=== PATIENT | male | born 1985 | race Caucasian/White ===

== ENCOUNTER 2022-08-22 15:16 | Emergency (ER) | payer MEDICAID ==
[~2022-08-22] VITALS: Ht 188 cm; Wt 78.0 kg
[2022-08-22] MEDS ORDERED: morphine 10mg/ml inj. IV ONE (17:00)
[2022-08-22] MEDS ORDERED: ketorolac trometh. 30mg/ml inj. IV ONE (17:00)
[2022-08-22] MEDS ORDERED: ketorolac tromethamine 15mg/ml inj. IV ONE (17:10)
[2022-08-22] MEDS ORDERED: orphenadrine citrate 60mg/2ml inj. IM ONE (19:30)
[2022-08-22] MEDS ORDERED: HYDROcodone/acetaminophen 10/325mg tab PO ONE (19:30)
[2022-08-22] MEDS ORDERED: ORPH100T4 PO (19:37)
[2022-08-22] MEDS ORDERED: HYDR-3972 PO (19:37)
[2022-08-22 19:53] VITALS: BP 136/90
== END 2022-08-22 19:59 | disposition home or self-care (01) ==
LOC: ER 15:17
DX: M54.59 Other low back pain (principal); F17.200 Nicotine dependence, unspecified, uncomplicated; Z79.899 Other long term (current) drug therapy
CPT/HCPCS: 71100; 72131; 96372; 96374; 96375; 99285; J1885; J2274; J2360

== ENCOUNTER 2022-09-01 20:55 | Emergency (ER) | payer MEDICAID ==
[~2022-09-01] VITALS: Ht 185.4 cm; Wt 81.8 kg
[~2022-09-01 20:55] MED LIST: HYDR-3972 PO; ORPH100T4 PO
[2022-09-01 21:01] VITALS: BP 120/80
[2022-09-01] MEDS ORDERED: ketorolac trometh inj. 60 MG/2 ML VIAL IM ONE (21:40)
[2022-09-01] MEDS ORDERED: morphine 4 MG/ML inj SYRINge IM ONE (22:45)
[2022-09-01] MEDS ORDERED: ondansetron 4mg rapidly disintigrating tab PO ONE (22:45)
[2022-09-02] MEDS ORDERED: triamcinolone acetonide 40mg/ml inj IM ONE (00:50)
[2022-09-02] MEDS ORDERED: HYDROmorphone 1 mg/ml syringe IM ONE (00:50)
[2022-09-02] MEDS ORDERED: orphenadrine citrate 60mg/2ml inj. IM ONE (00:50)
[2022-09-02] MEDS ORDERED: CYCL-1 PO (00:54)
[2022-09-02] MEDS ORDERED: NAPR-56 PO (00:54)
[2022-09-02 01:21] LABS: URINE AMPHETAMINE SCREEN NEGATIVE (Neg); URINE BARBITUATE SCREEN NEGATIVE (Neg); URINE BENZODIAZEPINES SCREEN NEGATIVE (Neg); URINE CANNABINOID SCREEN NEGATIVE (Neg); URINE COCAINE SCREEN NEGATIVE (Neg); URINE METHADONE SCREEN NEGATIVE (Neg); URINE OPIATE SCREEN NEGATIVE (Neg); URINE PHENCYCLIDINE SCREEN NEGATIVE (Neg)
[2022-09-02 01:23] LABS: CLARITY,URINE CLEAR (Clear); COLOR,URINE YELLOW (Yellow); GLUCOSE, URINE NEGATIVE (Neg); KETONES,URINE NEGATIVE (Neg); LEUKOCYTE ESTERASE ,URINE NEGATIVE (Neg); NITRITES, URINE NEGATIVE (Neg); OCCULT BLOOD,URINE NEGATIVE (Neg); PROTEIN,URINE NEGATIVE (Neg); UROBILINOGEN,URINE 0.2 E.U/dL (0.2-1.0)
[2022-09-02 01:33] LABS: UA COLLECTION TYPE URINAL
== END 2022-09-02 01:54 | disposition home or self-care (01) ==
LOC: ER 20:56
DX: M54.59 Other low back pain (principal); M62.830 Muscle spasm of back; Z79.899 Other long term (current) drug therapy
CPT/HCPCS: 80305; 81003; 96372; 99284; J1170; J1885; J2270; J2360; J3301

== ENCOUNTER 2024-04-16 17:55 | Emergency (ER) | payer MEDICAID ==
[~2024-04-16] VITALS: Ht 185.4 cm; Wt 86.4 kg
[~2024-04-16 17:55] MED LIST changes: -HYDR-3972 PO; +IBUP-1985 PO; +NICO-687 TD; +OMEP20CA15 PO; -ORPH100T4 PO; +PANT40TA54 PO
[2024-04-16 18:06] VITALS: TEMP 98.1
[2024-04-16 18:31] LABS: BASOPHILS # (AUTO) 0.1 X10'3 (0-0.2); BASOPHILS % (AUTO) 1.1 % (0-1); EOSINOPHILS # (AUTO) 0.4 X10'3 (0-0.9); EOSINOPHILS % (AUTO) 4.8 % (0-6); HEMATOCRIT 46.6 % (42.0-52.0); HEMOGLOBIN 16.2 g/dl (14.0-17.9); LYMPHOCYTES # (AUTO) 2.9 X10'3 (1.1-4.8); LYMPHOCYTES % (AUTO) 38.6 % (21-51); MEAN CORPUSCULAR HEMOGLOBIN 32.7 PG (27.0-31.0); MEAN CORPUSCULAR HGB CONC 34.8 g/dL (33.0-36.5); MEAN CORPUSCULAR VOLUME 94.1 FL (78-98); MEAN PLATELET VOLUME 7.9 FL (7.4-10.4); MONOCYTES # (AUTO) 0.7 X10'3 (0-0.9); MONOCYTES % (AUTO) 8.8 % (2-12); NEUTROPHILS # (AUTO) 3.6 X10'3 (1.8-7.7); NEUTROPHILS % (AUTO) 46.7 % (42-75); PLATELET COUNT 293 X10'3 (140-440); RED BLOOD COUNT 4.96 X10'6 (4.70-6.10); RED CELL DISTRIBUTION WIDTH 13.4 % (11.5-14.5); WHITE BLOOD COUNT 7.6 X10'3 (4.5-11.0)
[2024-04-16 18:56] LABS: ALANINE AMINOTRANSFERASE 32 U/L (12-78); ALBUMIN 4.3 G/DL (3.4-5.0); ALKALINE PHOSPHATASE 96 IU/L (46-116); ANION GAP 13 (8-16); ASPARTATE AMINO TRANSFERASE 31 U/L (10-37); BILIRUBIN,TOTAL 0.6 MG/DL (0.1-1.0); BLOOD UREA NITROGEN 7 MG/DL (7-18); BUN/CREATININE RATIO 7.5 (10.0-20.0); CALCIUM 9.2 MG/DL (8.5-10.1); CHLORIDE 104 MMOL/L (99-107); CREATININE 0.93 MG/DL (0.60-1.10); GLUCOSE 103 MG/DL (70-104); LIPASE 73 U/L (16-77); POTASSIUM 3.7 MMOL/L (3.5-5.1); SODIUM 142 MMOL/L (135-145); TOTAL CARBON DIOXIDE 25.4 MMOL/L (24-32); TOTAL PROTEIN 8.6 G/DL (6.4-8.2); eCRCL 119 ML/MIN; eGFR 90 ML/MIN
[2024-04-16 19:31] LABS: BILIRUBIN,URINE NEGATIVE (Neg); CLARITY,URINE CLEAR (Clear); COLOR,URINE YELLOW (Yellow); GLUCOSE, URINE NEGATIVE (Neg); KETONES,URINE NEGATIVE (Neg); LEUKOCYTE ESTERASE ,URINE NEGATIVE (Neg); NITRITES, URINE NEGATIVE (Neg); OCCULT BLOOD,URINE NEGATIVE (Neg); PROTEIN,URINE NEGATIVE (Neg); UROBILINOGEN,URINE 0.2 E.U/dL (0.2-1.0)
[2024-04-16 19:34] LABS: UA COLLECTION TYPE CLN CATCH MIDSTREAM
[2024-04-16] MEDS: LIDOcaine 2% Viscous 15ml cup MM PRN (19:43)
[2024-04-16] MEDS: mag hydrox/Alum hydrox/simeth 30ml oral suspension PO ONE (19:43)
[2024-04-16] MEDS: pantoprazole 40 MG vial IV ONE (19:43)
[2024-04-16] MEDS ORDERED: SUCR1TAB PO (20:03)
[2024-04-16 20:11] VITALS: PULSE 84; RESP 16; O2SAT 95
== END 2024-04-16 20:15 | disposition home or self-care (01) ==
LOC: ER 17:56
DX: K29.70 Gastritis, unspecified, without bleeding (principal); K29.80 Duodenitis without bleeding; F10.10 Alcohol abuse, uncomplicated
CPT/HCPCS: 36415; 80053; 81003; 83690; 85025; 96374; 99283; J2470; J7030

== ENCOUNTER 2024-04-27 14:28 | Emergency (ER) | payer MEDICAID ==
[~2024-04-27] VITALS: Ht 185.4 cm; Wt 86.0 kg
[~2024-04-27 14:28] MED LIST changes: +SUCR1TAB PO
[2024-04-27 14:42] VITALS: TEMP 97.6
[2024-04-27] MEDS ORDERED: normal saline 1000ML IV soln IVB ONE (14:50)
[2024-04-27] MEDS ORDERED: ondansetron/PF 4mg/2ml inj IV ONE (14:55)
[2024-04-27] MEDS ORDERED: morphine 4 MG/ML inj SYRINge IV ONE (14:55)
[2024-04-27 15:14] LABS: BILIRUBIN,URINE NEGATIVE (Neg); CLARITY,URINE CLEAR (Clear); COLOR,URINE YELLOW (Yellow); GLUCOSE, URINE NEGATIVE (Neg); KETONES,URINE NEGATIVE (Neg); LEUKOCYTE ESTERASE ,URINE NEGATIVE (Neg); NITRITES, URINE NEGATIVE (Neg); OCCULT BLOOD,URINE NEGATIVE (Neg); PH,URINE 5.5 (4.8-8.0); PROTEIN,URINE NEGATIVE (Neg); UROBILINOGEN,URINE 0.2 E.U/dL (0.2-1.0)
[2024-04-27 15:17] LABS: UA COLLECTION TYPE CLN CATCH MIDSTREAM
[2024-04-27 15:40] LABS: BASOPHILS # (AUTO) 0.1 X10'3 (0-0.2); BASOPHILS % (AUTO) 0.4 % (0-1); EOSINOPHILS # (AUTO) 0.3 X10'3 (0-0.9); EOSINOPHILS % (AUTO) 2.4 % (0-6); HEMATOCRIT 45.2 % (42.0-52.0); HEMOGLOBIN 15.5 g/dl (14.0-17.9); LYMPHOCYTES # (AUTO) 2.7 X10'3 (1.1-4.8); LYMPHOCYTES % (AUTO) 20.3 % (21-51); MEAN CORPUSCULAR HEMOGLOBIN 32.5 PG (27.0-31.0); MEAN CORPUSCULAR HGB CONC 34.3 g/dL (33.0-36.5); MEAN CORPUSCULAR VOLUME 94.8 FL (78-98); MEAN PLATELET VOLUME 7.9 FL (7.4-10.4); MONOCYTES # (AUTO) 0.9 X10'3 (0-0.9); MONOCYTES % (AUTO) 6.6 % (2-12); NEUTROPHILS # (AUTO) 9.2 X10'3 (1.8-7.7); NEUTROPHILS % (AUTO) 70.3 % (42-75); PLATELET COUNT 279 X10'3 (140-440); RED BLOOD COUNT 4.77 X10'6 (4.70-6.10); RED CELL DISTRIBUTION WIDTH 13.5 % (11.5-14.5); WHITE BLOOD COUNT 13.1 X10'3 (4.5-11.0)
[2024-04-27 15:56] LABS: ALANINE AMINOTRANSFERASE 25 U/L (12-78); ALBUMIN 4.1 G/DL (3.4-5.0); ALBUMIN/GLOBULIN RATIO 1.1 (1.1-1.5); ALKALINE PHOSPHATASE 72 IU/L (46-116); ANION GAP 12 (8-16); ASPARTATE AMINO TRANSFERASE 18 U/L (10-37); BILIRUBIN,TOTAL 0.7 MG/DL (0.1-1.0); BLOOD UREA NITROGEN 7 MG/DL (7-18); BUN/CREATININE RATIO 9.6 (10.0-20.0); CALCIUM 9.3 MG/DL (8.5-10.1); CHLORIDE 105 MMOL/L (99-107); CREATININE 0.73 MG/DL (0.60-1.10); GLUCOSE 98 MG/DL (70-104); LIPASE 65 U/L (16-77); POTASSIUM 3.9 MMOL/L (3.5-5.1); SODIUM 142 MMOL/L (135-145); TOTAL CARBON DIOXIDE 25.2 MMOL/L (24-32); eCRCL 152 ML/MIN; eGFR > 90 ML/MIN
[2024-04-27 16:17] LABS: C-REACTIVE PROTEIN < 0.05 MG/DL (0.0-0.5)
[2024-04-27] MEDS ORDERED: OMEP40CA21 PO (16:36)
[2024-04-27] MEDS: famotidine 20mg tablet PO ONE (17:22)
[2024-04-27] MEDS: mag hydrox/Alum hydrox/simeth 30ml oral suspension PO ONE (17:22)
[2024-04-27] MEDS: LIDOcaine 2% Viscous 15ml cup MM PRN (17:22)
[2024-04-27] MEDS: LORazepam 1 MG tablet PO ONE (17:22)
[2024-04-27 17:24] VITALS: BP 125/91; PULSE 84; RESP 16; O2SAT 97
[2024-04-27] MEDS ORDERED: SUCR1TAB34 PO (17:28)
== END 2024-04-27 18:08 | disposition home or self-care (01) ==
LOC: ER 14:28
DX: R10.9 Unspecified abdominal pain (principal); F10.10 Alcohol abuse, uncomplicated; R10.84 Generalized abdominal pain
CPT/HCPCS: 36415; 74176; 80053; 81003; 83605; 83690; 84145; 85025; 86140; 87040; 99284

== ENCOUNTER 2024-06-18 09:57 | Emergency (ER) | payer MEDICAID ==
[~2024-06-18] VITALS: Ht 185.4 cm; Wt 81.7 kg
[~2024-06-18 09:57] MED LIST changes: +SUCR1TAB34 PO
[2024-06-18 11:02] LABS: BASOPHILS # (AUTO) 0.1 X10'3 (0-0.2); BASOPHILS % (AUTO) 1.1 % (0-1); EOSINOPHILS # (AUTO) 0.1 X10'3 (0-0.9); EOSINOPHILS % (AUTO) 1.7 % (0-6); HEMATOCRIT 47.7 % (42.0-52.0); HEMOGLOBIN 16.3 g/dl (14.0-17.9); LYMPHOCYTES # (AUTO) 0.9 X10'3 (1.1-4.8); LYMPHOCYTES % (AUTO) 18.7 % (21-51); MEAN CORPUSCULAR HEMOGLOBIN 32.4 PG (27.0-31.0); MEAN CORPUSCULAR HGB CONC 34.2 g/dL (33.0-36.5); MEAN CORPUSCULAR VOLUME 94.7 FL (78-98); MONOCYTES # (AUTO) 0.1 X10'3 (0-0.9); MONOCYTES % (AUTO) 2.4 % (2-12); NEUTROPHILS # (AUTO) 3.5 X10'3 (1.8-7.7); NEUTROPHILS % (AUTO) 76.1 % (42-75); PLATELET COUNT 218 X10'3 (140-440); RED BLOOD COUNT 5.03 X10'6 (4.70-6.10); RED CELL DISTRIBUTION WIDTH 13.4 % (11.5-14.5); WHITE BLOOD COUNT 4.6 X10'3 (4.5-11.0)
[2024-06-18 11:20] LABS: APTT 29 SECONDS (22-32); INR 0.9 INR; PROTHROMBIN TIME 9.9 SECONDS (9.0-12.0)
[2024-06-18 11:22] LABS: ALANINE AMINOTRANSFERASE 31 U/L (12-78); ALBUMIN 4.1 G/DL (3.4-5.0); ALKALINE PHOSPHATASE 78 IU/L (46-116); ANION GAP 10 (8-16); ASPARTATE AMINO TRANSFERASE 32 U/L (10-37); BILIRUBIN,TOTAL 0.4 MG/DL (0.1-1.0); BLOOD UREA NITROGEN 6 MG/DL (7-18); BUN/CREATININE RATIO 8.5 (10.0-20.0); CHLORIDE 108 MMOL/L (99-107); CREATININE 0.71 MG/DL (0.60-1.10); GLUCOSE 121 MG/DL (70-104); POTASSIUM 4.2 MMOL/L (3.5-5.1); SODIUM 145 MMOL/L (135-145); TOTAL CARBON DIOXIDE 27.5 MMOL/L (24-32); TOTAL PROTEIN 8.2 G/DL (6.4-8.2); eCRCL 156 ML/MIN; eGFR > 90 ML/MIN
[2024-06-18 11:32] LABS: MAGNESIUM 2.1 MG/DL (1.5-2.4)
[2024-06-18 11:33] LABS: ETHANOL 327 MG/DL (<10)
[2024-06-18] MEDS: normal saline 1000ML IV soln IVB ONE (11:49)
[2024-06-18 12:32] LABS: BILIRUBIN,URINE NEGATIVE (Neg); CLARITY,URINE CLEAR (Clear); COLOR,URINE STRAW (Yellow); GLUCOSE, URINE NEGATIVE (Neg); KETONES,URINE NEGATIVE (Neg); LEUKOCYTE ESTERASE ,URINE NEGATIVE (Neg); NITRITES, URINE NEGATIVE (Neg); OCCULT BLOOD,URINE NEGATIVE (Neg); PH,URINE 6.5 (4.8-8.0); PROTEIN,URINE NEGATIVE (Neg); UROBILINOGEN,URINE 0.2 E.U/dL (0.2-1.0)
[2024-06-18 12:41] LABS: URINE AMPHETAMINE SCREEN NEGATIVE (Neg); URINE BARBITUATE SCREEN NEGATIVE (Neg); URINE BENZODIAZEPINES SCREEN NEGATIVE (Neg); URINE CANNABINOID SCREEN NEGATIVE (Neg); URINE COCAINE SCREEN NEGATIVE (Neg); URINE METHADONE SCREEN NEGATIVE (Neg); URINE OPIATE SCREEN NEGATIVE (Neg); URINE PHENCYCLIDINE SCREEN NEGATIVE (Neg)
[2024-06-18 12:48] LABS: UA COLLECTION TYPE URINAL
[2024-06-18 13:10] VITALS: BP 143/97; PULSE 81; RESP 16; TEMP 98.7; O2SAT 97
== END 2024-06-18 13:27 | disposition home or self-care (01) ==
LOC: ER 09:57
DX: R40.4 Transient alteration of awareness (principal); F10.129 Alcohol abuse with intoxication, unspecified; Y90.9 Presence of alcohol in blood, level not specified
CPT/HCPCS: 36415; 70450; 80053; 80305; 80320; 81003; 83735; 84484; 85025; 85610; 85730; 93005; 96360; 99284; J7030

== ENCOUNTER 2024-12-15 10:03 | Emergency (ER) | payer MEDICAID ==
[~2024-12-15] VITALS: Ht 172.7 cm; Wt 81.8 kg
[~2024-12-15 10:03] MED LIST changes: -IBUP-1985 PO; +IBUP600T52 PO
[2024-12-15 10:10] VITALS: TEMP 98.1
[2024-12-15 10:58] LABS: MEAN PLATELET VOLUME 7.8 FL (7.4-10.4); RED CELL DISTRIBUTION WIDTH 14.1 % (11.5-14.5)
[2024-12-15 11:16] LABS: LEUKOCYTE ESTERASE ,URINE NEGATIVE (Neg); NITRITES, URINE NEGATIVE (Neg); OCCULT BLOOD,URINE NEGATIVE (Neg); UA COLLECTION TYPE URINAL
[2024-12-15 11:56] LABS: CREATININE 0.72 MG/DL (0.60-1.10); TOTAL CARBON DIOXIDE 23.6 MMOL/L (24-32); eCRCL 132 ML/MIN; eGFR > 90 ML/MIN
[2024-12-15] MEDS ORDERED: morphine 4 MG/ML inj SYRINge IV PRN (12:50)
--- NOTE | 2024-12-15 13:05 | RADIOLOGY REPORT ---
CHEST RADIOGRAPH Indication: abdominal pain Technique: Single frontal view of the chest was obtained COMPARISON: None FINDINGS: Lines and Tubes: None Lungs: Clear Pleura: No effusion. No pneumothorax. Cardiomediastinal contours: Unremarkable Bones: Unremarkable IMPRESSION: No acute disease.
[2024-12-15] MEDS ORDERED: iohexol 300mg/ml 100ml inj. ONE (13:08)
[2024-12-15] MEDS: morphine 4 MG/ML inj SYRINge IV ONE (13:14)
[2024-12-15] MEDS: normal saline 1000ML IV soln IVB ONE ×2 (13:14→13:19)
[2024-12-15] MEDS: ondansetron/PF 4mg/2ml inj IV ONE ×2 (13:14→13:19)
[2024-12-15 13:19] VITALS: O2SAT 97
--- NOTE | 2024-12-15 14:37 | RADIOLOGY REPORT ---
COMPUTERIZED TOMOGRAPHY ABDOMEN AND PELVIS WITH CONTRAST REASON FOR EXAM: Abdominal Pain COMPARISON: CT CT ABDOMEN PELVIS on DOS: 04/27/24 TECHNIQUE: The exam was performed on a Multidetector scanner. Spiral scans were acquired from the anatoliy phragm to the symphysis pubis after administration of IV contrast. 2-D coronal and sagittal reformatt ed images were provided. Radiation optimization: All CT scans at this facility use at least one of th niall dose optimization techniques: Automated exposure control mA and/or kV adjustment per patient size (includes targeted exams where dose is matched to clinical indication) or iterative reconstruction. CONTRAST ADMINISTRATION: 100 mL omnipaque 300 intravenously RADIATION DOSE: CTDI: 17 mGy DLP: 902 mGy-cm FINDINGS: The visualized lung bases are clear. There is no pleural effusion. There is no pericardial effusion. The spleen is not enlarged. The liver is at the upper limits of normal for size. The liver is diffus ana maria hypoattenuating. The portal vein is patent. The hepatic veins are patent. No calcified gallston e is identified. There is no pericholecystic edema. The pancreas is unremarkable. The adrenal glands are normal. The kidneys enhance symmetrically. No solid renal mass is identified. There is no hydrone phrosis of either kidney. There is no abdominal aortic aneurysm. There is a retroaortic left renal ve in. There is no pathologic lymphadenopathy by size criteria. No free fluid is identified in the abdo men or pelvis. There is no distention of the small bowel to suggest obstruction. The prostate and mayito inal vesicles are within normal limits. The colonic stool burden is small. The appendix is normal. Th e urinary bladder is within normal limits. No acute osseous abnormality is identified. IMPRESSION: The liver is diffusely hypoattenuating which may be secondary to steatosis or another diffuse hepatic process. Correlate clinically and with liver function tests. Normal appendix. No evidence of bowel obstruction.
--- NOTE | 2024-12-15 14:47 | Physician Documentation ---
History of Present Illness ~ Chief Complaint: Abdominal Pain Stated Complaint: ABDOMINAL PAIN Time Seen by MD: 12:26 Primary Medical Doctor: none Source: patient Mode of Arrival: POV Exam Limitations: no limitations HPI Chief Complaint: Abdominal pain Caveat: None Independent Historians: None History of Present Illness: Patient is a 39-year-old man who comes in complaining of upper abdominal pain that began two weeks ago and has been getting progressively worse. Patient is unable to describe the pain. Patient has had associated nausea and vomiting. No fever. Patient drinks alcohol daily. Patient has not had any alcohol now for at least one day. Review of systems: All systems were reviewed and are negative except for what is indicated in the history of present illness. Past Medical History: None Past Surgical History: None Social History: Alcohol use, tobacco use, denies other drug use Medications: Reviewed as documented Nursing Notes Allergies: Reviewed as documented in Nursing Notes Medication Reconciliation Allergies: Coded Allergies: No Known Allergies (Unverified , 12/15/24) Scheduled Nicotine 21 MG Patch* (Habitrol 21 MG Patch*), 1 PATCH TD DAILY Omeprazole (Omeprazole), 1 CAP PO DAILY Pantoprazole Sodium (Pantoprazole Sodium), 40 MG PO DAILY Sucralfate (Carafate), 1 TAB PO Q6H Sucralfate (Carafate), 1 TAB PO ACHS Scheduled PRN Ibuprofen (Ibuprofen), 1 TAB PO Q8H PRN for pain ONDANSETRON ODT 4mg tablet (Ondansetron Odt), 1 TAB PO Q6H PRN PRN for na usea/vomiting Sucralfate (Sucralfate), 1 GM PO TID PRN for abdominal cramps Past Medical History Past Medical History: No Pertinent History Past Surgical History: noncontributory Alcohol Use: Occasionally Drug Use: none Lives In: Home Review of Systems All Other Systems at this time: Reviewed and Negative ROS Patient denies any other acute symptoms other than above. All other systems are negative Physical Exam Vital Signs: RN Vital Signs have been reviewed: Yes, Temperature: 98.1, Source: Temporal, Heart Rate: 70, Respiratory Rate: 20, BP: 154/108, Pulse Oximetry: 97, Weight: 81.820 Oxygen Flow Rate: 0 Pulse Oximetry Reflects: adequate oxygenation Physical Exam General Appearance: Moderate distress HEENT: Normal OP, moist oral mucosa, PERRL, EOMI Neck: supple, normal ROM, trachea midline Pulmonary: No respiratory distress, CTA, BS equal Cardiac: RRR, no murmur, rub or gallop, GI: nondistended, soft, voluntary guarding, diffuse upper abdominal tenderness, normal bowel sounds, no guarding, no rebound Extremities: normal ROM, no swelling, non-tender Skin: intact, dry, warm, no rashes Neuro: AAOx3, speech is clear, no focal motor weakness Psych: normal affect, good eye contact, no apparent hallucination, normal speech Progress Results/Orders Results/Orders Orders - MICHAEL GRULLON MD * Iv Access / Saline Lock * (12/15/24 12:45) Morphine 4mg/Ml Inj. (Morphine Inj.) (12/15/24 12:50) Ct Abdomen Pelvis (12/15/24 14:15) Chest,Single View (12/15/24 12:57) Monitor (12/15/24 12:46) Saline Lock (12/15/24 12:46) Nothing By Mouth (12/15/24 Dinner) Completed Orders - MICHAEL GRULLON MD Urinalysis, Cult If Indicated (12/15/24 10:13) Cbc/Diff (12/15/24 10:13) BMP (12/15/24 10:13) Lipase (12/15/24 10:13) CMP (12/15/24 10:13) Morphine 4mg/Ml Inj. (Morphine Inj.) (12/15/24 12:45) Ondansetron Inj. (Zofran 4mg/2ml Vial) (12/15/24 12:45) Normal Saline 1000ml (0.9% Sodium Chlori (12/15/24 12:45) Ondansetron Inj. (Zofran 4mg/2ml Vial) (12/15/24 12:50) Normal Saline 1000ml (0.9% Sodium Chlori (12/15/24 12:50) Ct Abdomen Pelvis (12/15/24 14:15) Chest,Single View (12/15/24 12:57) Iohexol 300mg/Ml 100ml Inj. (Omnipaque-3 (12/15/24 13:08) Mag & Alum Hydrox/Simeth Susp (Maalox Or (12/15/24 14:50) Sucralfate Tablet (Carafate Tablet) (12/15/24 14:50) Lidocaine 2% Viscous (Xylocaine 2% Visco (12/15/24 14:50) Medications Received in ER Medications (Trade) Dose Ordered Sig/Birgit Route PRN Reason Start Time Stop Time Status Last Admin Dose Admin (morphine inj.) 4 mg ONCE ONCE IV 12/15/24 12:45 12/15/24 12:46 DC 12/15/24 13:14 4 MG (Zofran 4mg/2ml vial) 4 mg ONCE ONCE IV 12/15/24 12:45 12/15/24 12:46 DC 12/15/24 13:14 4 MG (0.9% sodium chloride (NS) 1000ml IV soln) 1,000 ml ONCE ONCE IVB 12/15/24 12:45 12/15/24 12:46 DC 12/15/24 13:14 1,000 ML (Maalox oral suspension) 30 ml ONCE ONCE PO 12/15/24 14:50 12/15/24 14:51 DC 12/15/24 15:10 30 ML (Carafate tablet) 1 gm ONCE ONCE PO 12/15/24 14:50 12/15/24 14:51 DC 12/15/24 15:10 1 GM (Xylocaine 2% Viscous 15mL cup) 20 ml ONCE ONCE MM 12/15/24 14:50 12/15/24 14:51 DC 12/15/24 15:10 20 ML Vital Signs 12/15/24 12/15/24 12/15/24 12/15/24 10:10 10:34 10:34 13:14 Temp 98.1 Pulse 96 99 Resp 18 14 14 18 B/P (MAP) 154/74 107/89 (95) Pulse Ox 99 96 O2 Flow Rate 0 0 12/15/24 13:19 Pulse 70 Resp 20 B/P (MAP) 154/108 (123) Pulse Ox 97 O2 Flow Rate 0 Laboratory Tests Test 12/15/24 10:23 12/15/24 11:00 White Blood Count 7.5 Red Blood Count 4.99 Hemoglobin 15.5 Hematocrit 45.0 Mean Corpuscular Volume 90.1 Mean Corpuscular Hemoglobin 31.0 Mean Corpuscular Hemoglobin Concent 34.4 Red Cell Distribution Width 14.1 Platelet Count 275 Mean Platelet Volume 7.8 Neutrophils (%) (Auto) 61.3 Lymphocytes (%) (Auto) 29.0 Monocytes (%) (Auto) 6.8 Eosinophils (%) (Auto) 2.1 Basophils (%) (Auto) 0.8 Neutrophils # (Auto) 4.6 Lymphocytes # (Auto) 2.2 Monocytes # (Auto) 0.5 Eosinophils # (Auto) 0.2 Basophils # (Auto) 0.1 CBC Comment Sodium Level 143 Potassium Level 3.5 Chloride Level 106 Carbon Dioxide Level 23.6 L Anion Gap 13 Blood Urea Nitrogen 5 L Creatinine 0.72 Estimated GFR/1.73 m2 > 90 BUN/Creatinine Ratio 6.9 L Glucose Level 93 Calcium Level 8.8 Total Bilirubin 1.0 Aspartate Amino Transf (AST/SGOT) 61 H Alanine Aminotransferase (ALT/SGPT) 56 Alkaline Phosphatase 86 Total Protein 7.8 Albumin 4.1 Globulin 3.7 Albumin/Globulin Ratio 1.1 Lipase 96 H Chemistry Comments Urine Specimen Description Urinal Urine Color Yellow Urine Clarity Clear Urine pH 6.0 Urine Specific [place] <=1.005 Urine Protein Negative Urine Glucose (UA) Negative Urine Ketones Negative Urine Occult Blood Negative Urine Nitrite Negative Urine Bilirubin Negative Urine Urobilinogen 0.2 Urine Leukocyte Esterase Negative Urine Culture Indicated Not ind Volume Urine Centrifuged 10 ml Urine Comment Medical Decision Making Findings Differential diagnosis includes but is not limited to: EKG independent interpretation: Chest x-ray, single view, indication: Abdominal pain Independent interpretation: Lungs are clear, no free air, normal mediastinum, normal cardiac silhouette Abdomen and pelvis CT scan with IV contrast, indication: Abdominal pain Impression: The liver is diffusely hypoattenuating which may be secondary to steatosis or another diffuse hepatic process. Correlate clinically and with liver function tests. Normal appendix. No evidence of bowel obstruction. Laboratory data independent interpretation: CBC: Normal CMP: Unremarkable, AST 61, normal total bili of 1, lipase mildly elevated 96 Emergency department course/medical decision-making: Presents with severe acute abdominal pain that has gotten progressively worse over two weeks. Patient drinks a lot of alcohol. Patient is given 4 mg IV morphine and 4 mg of Zofran IV. Patient is also given 1 L of normal saline. Patient's pain has improved. Patient has a mildly elevated lipase consistent with pancreatitis. Patient has also thought to have acute alcoholic gastritis. Patient is given a GI cocktail in his helped with his pain. Patient isn't vomiting here. Patient will be given a prescription for Carafate and Zofran. Patient's test results and treatment plan reviewed with the patient. Patient does not meet any admission criteria. Patient is afebrile and hemodynamically stable. There was no evidence of a medical or surgical emergency at this time. Patient is stable for discharge. Departure Time of Disposition: 15:15 Disposition: 01 HOME / SELF CARE / HOMELESS Impression: Primary Impression: Pancreatitis Qualified Codes: K85.20 - Alcohol induced acute pancreatitis without necrosis or infection Additional Impression: Alcoholic gastritis Qualified Codes: K29.20 - Alcoholic gastritis without bleeding Condition: Stable Discharge Instructions: Acute Pancreatitis, [id number], Gastritis, Adult Additional Instructions: RECOMMEND A LIQUID DIET AND SLOWLY ADVANCE YOUR DIET OVER SEVERAL DAYS. Prescriptions ONDANSETRON ODT 4mg tablet (ONDANSETRON ODT) 4 Mg Tab.rapdis 1 TAB PO Q6H PRN PRN for nausea/vomiting for 4 Days, #16 TAB 0 Refills Prov: MICHAEL GRULLON MD 12/15/24 Sucralfate (Carafate) 1 Gram Tablet 1 TAB PO ACHS for 30 Days, #120 TAB 0 Refills Prov: MICHAEL GRULLON MD 12/15/24 Education Educated: Patient Educated regarding: diagnosis, treatment, need for follow up Signature Scribe Signature: . Attestation: . MICHAEL GRULLON MD Dec 15, 2024 14:47
[2024-12-15] MEDS: mag hydrox/Alum hydrox/simeth 30ml oral suspension PO ONE (15:10)
[2024-12-15] MEDS: LIDOcaine 2% Viscous 15ml cup MM ONE (15:10)
[2024-12-15] MEDS ORDERED: SUCR1TAB34 PO (15:16)
[2024-12-15] MEDS ORDERED: ONDA-243 PO (15:16)
[2024-12-15 15:18] VITALS: BP 150/96; PULSE 75; RESP 19
== END 2024-12-15 15:37 | disposition home or self-care (01) ==
LOC: ER 10:04
DX: K29.20 Alcoholic gastritis without bleeding (principal); K85.20 Alcohol induced acute pancreatitis without necrosis or infection; Z79.899 Other long term (current) drug therapy; Z72.89 Other problems related to lifestyle
CPT/HCPCS: 36415; 71045; 74177; 80053; 81003; 83690; 85025; 96374; 96375; 99285; J2270; J2405; J7030; Q9967

== ENCOUNTER 2025-01-15 14:39 | Emergency (ER) | payer MEDICAID ==
[~2025-01-15 14:39] MED LIST changes: +ONDA-243 PO
== END 2025-01-15 15:55 | disposition left against medical advice (07) ==
LOC: ER 14:40
DX: R10.9 Unspecified abdominal pain (principal); Z53.21 Procedure and treatment not carried out due to patient leaving prior to being seen by health care provider

== ENCOUNTER 2025-02-05 19:24 | Emergency (ER) | payer MEDICAID ==
[~2025-02-05] VITALS: Ht 185.4 cm; Wt 79.5 kg
[~2025-02-05 19:24] MED LIST changes: +NEOM10DR45 RIGHT EAR
--- NOTE | 2025-02-05 19:46 | Physician Documentation ---
History of Present Illness ~ Chief Complaint: Mechanical Fall Stated Complaint: SYCOPE Time Seen by MD: 23:22 Primary Medical Doctor: none Source: patient Mode of Arrival: POV Exam Limitations: no limitations HPI 39-year-old Male known alcohol abuse was in the emergency department yesterday for dizziness with elevated ethanol level had experienced a syncopal episode and kitchen tonight witnessed by significant other and brought in by EMS with no definite amount of time but less than 5 minutes estimated. Tetanus within 5 Years?: No Medication Reconciliation Allergies: Coded Allergies: No Known Allergies (Unverified , 02/05/25) Scheduled Cephalexin*Monohydrate* (Keflex*), 2 CAP PO BID Neomy Sulf/Polymyx B Sulf/Hc (Cortisporin Otic Suspension*), 4 DROP RIGHT EAR Q8H Nicotine 21 MG Patch* (Habitrol 21 MG Patch*), 1 PATCH TD DAILY Omeprazole (Omeprazole), 1 CAP PO DAILY Pantoprazole Sodium (Pantoprazole Sodium), 40 MG PO DAILY Sucralfate (Carafate), 1 TAB PO Q6H Sucralfate (Carafate), 1 TAB PO ACHS Scheduled PRN Chlordiazepoxide Hcl (Librium), 25 MG PO UD PRN for for anxiety/agitation Ibuprofen (Ibuprofen), 1 TAB PO Q8H PRN for pain ONDANSETRON ODT 4mg tablet (Ondansetron Odt), 1 TAB PO Q6H PRN PRN for nausea/vomiting Sucralfate (Sucralfate), 1 GM PO TID PRN for abdominal cramps Past Medical History Past Medical History: No Pertinent History Past Surgical History: noncontributory Alcohol Use: Heavy Drug Use: none Lives In: Home Review of Systems All Other Systems at this time: Reviewed and Negative Neurological: Reports: see HPI Physical Exam Vital Signs: Temperature: 97.6, Source: Temporal, Heart Rate: 120, Respiratory Rate: 18, BP: 155/90, Pulse Oximetry: 95 Physical Exam General: Alert, no apparent distress. HEENT: moist mucous membranes. Jaundice eyes Neck: Full range of motion. Respiratory: No respiratory distress speaking in full sentences Chest: No accessory muscle use. Cardiovascular: Appears well perfused Neurologic: Oriented x4. Psychiatric: Normal mood and affect. Skin: Normal color, warm and dry. No edema, no ecchymosis. Progress Progress Note PATIENT WAS SEEN WITH THE NURSE PRACTITIONER THE PATIENT HAS A NEW ONSET SEIZURE, the patient has clinical alcohol withdrawal as he states he stopped drinking two days ago. The patient is tremulous and clinically dehydrated he will be given IV fluids as well as Ativan and discharged on a Librium taper. CT imaging was reviewed of his head in his labs have been reviewed as well as his previous hospitalizations. Results/Orders Results/Orders Completed Orders - OHLFS,PILAR Pillai MD Lorazepam Tablet (Ativan Tablet) (02/05/25 23:30) Normal Saline 1000ml (0.9% Sodium Chlori (02/05/25 23:30) Ketorolac Trometh 15mg/Ml Vial (Toradol (02/05/25 23:30) Acetaminophen 1,000mg/100ml Iv (Ofirmev (02/05/25 23:28) Ceftriaxone 2gm/D5w 50ml Bag (Rocephin 2 (02/06/25 00:25) Potassium Cl Sr Tablet (K-Dur Tablet) (02/06/25 00:22) Lorazepam Tablet (Ativan Tablet) (02/06/25 01:05) Medications Received in ER Medications (Trade) Dose Ordered Sig/Birgit Route PRN Reason Start Time Stop Time Status Last Admin Dose Admin (Ativan tablet) 4 mg ONCE ONCE PO 02/05/25 23:30 02/05/25 23:31 DC 02/05/25 23:50 4 MG (0.9% sodium chloride (NS) 1000ml IV soln) 2,000 ml ONCE ONCE IVB 02/05/25 23:30 02/05/25 23:31 DC 02/05/25 23:49 2,000 ML (Toradol injection) 15 mg ONCE ONCE IV 02/05/25 23:30 02/05/25 23:31 DC 02/05/25 23:49 15 MG Acetaminophen 100 ml @ 400 mls/hr ONCE STAT IV 02/05/25 23:28 02/05/25 23:42 DC 02/05/25 23:44 400 MLS/HR Ceftriaxone Sodium/Dextrose 50 ml @ 100 mls/hr ONCE ONCE IV 02/06/25 00:25 02/06/25 00:54 DC 02/06/25 00:33 100 MLS/HR (K-DUR tablet) 40 meq ONCE STAT PO 02/06/25 00:22 02/06/25 00:26 DC 02/06/25 00:34 40 MEQ (Ativan tablet) 2 mg ONCE ONCE PO 02/06/25 01:05 02/06/25 01:06 DC 02/06/25 01:17 2 MG Vital Signs 02/05/25 02/05/25 02/05/25 02/05/25 19:33 22:33 23:00 23:49 Temp 97.6 Pulse 120 88 91 Resp 18 16 18 16 B/P (MAP) 155/90 144/111 (122) 149/110 (123) Pulse Ox 95 97 99 02/05/25 02/06/25 02/06/25 02/06/25 23:50 01:17 01:38 01:39 Temp 98.1 Pulse 78 70 Resp 18 15 18 16 B/P (MAP) 133/84 (100) 133/84 Pulse Ox 99 99 Laboratory Tests Test 02/05/25 20:58 02/05/25 22:50 White Blood Count 7.4 Red Blood Count 4.80 Hemoglobin 15.4 Hematocrit 45.3 Mean Corpuscular Volume 94.2 Mean Corpuscular Hemoglobin 32.1 H Mean Corpuscular Hemoglobin Concent 34.1 Red Cell Distribution Width 14.6 H Platelet Count 135 L Mean Platelet Volume 9.3 Neutrophils (%) (Auto) 85.6 H Lymphocytes (%) (Auto) 7.1 L Monocytes (%) (Auto) 6.6 Eosinophils (%) (Auto) 0.2 Basophils (%) (Auto) 0.5 Neutrophils # (Auto) 6.3 Lymphocytes # (Auto) 0.5 L Monocytes # (Auto) 0.5 Eosinophils # (Auto) 0.0 Basophils # (Auto) 0.0 CBC Comment Sodium Level 136 Potassium Level 3.3 L Chloride Level 95 L Carbon Dioxide Level 32.6 H Anion Gap 8 Blood Urea Nitrogen 9 Creatinine 0.86 Estimated GFR/1.73 m2 > 90 BUN/Creatinine Ratio 10.5 Glucose Level 140 H Calcium Level 9.3 Total Bilirubin 2.5 H Aspartate Amino Transf (AST/SGOT) 121 H Alanine Aminotransferase (ALT/SGPT) 158 H Alkaline Phosphatase 86 Total Protein 8.7 H Albumin 4.6 Globulin 4.1 Albumin/Globulin Ratio 1.1 Chemistry Comments Ethyl Alcohol Level < 10 Urine Specimen Description Non-specified Urine Color Dark yellow Urine Clarity Clear Urine pH 7.0 Urine Specific [place] 1.020 Urine Protein >=300 H Urine Glucose (UA) 100 H Urine Ketones Trace H Urine Occult Blood Trace-intact Urine Nitrite Positive H Urine Bilirubin Moderate Urine Urobilinogen 4.0 H Urine Leukocyte Esterase Negative Urine RBC None seen Urine WBC 0-4 Urine Squamous Epithelial Cells Few Urine Bacteria Few Urine Culture Indicated Indicated Volume Urine Centrifuged 10 ml Urine Comment Microbiology Date/Time Source Procedure Growth Status 02/06/25 00:03 Urine Nonspecified Urine Culture - Preliminary Culture received. Resulted EKG/XRAY/CT/US/VASC/MRI CT : Impression CAT SCAN Patient: MICHAEL PARISI Medical Record: [id number] [facility] : 1985, Age: 39 Sex: Male Location: ER Patient Status: REG ER Service Date/Time: 02/05/25 Ordering Physician: JAJA RODAS NP Exam: CT HEAD Procedure: CT CT HEAD [facility] Study Date and Requested Time: 02/05/2025 07:48 PM History: syncope Comparison: CT CT HEAD on DOS: 06/18/24 Dose: CTDI: 64.57 mGy DLP: 1185.59 mGycm Technique: Multiplanar images obtained through the brain without intravenous contrast. Findings: Normal brain volume and formation. No hemorrhages, masses, mass effect, midline shift, herniation or cytotoxic edema following a large vascular territory. No intra-axial or extra-axial fluid collections. No evidence of hydrocephalus. The basal cisterns are patent. The pituitary gland, sella and parasellar regions are unremarkable. The cerebellar tonsils are in normal position. The cerebellum is unremarkable. The orbits and globes are unremarkable. Layering fluid within the left maxillary sinus with opacification of the right posterior ethmoid air cell. Otherwise, the paranasal sinuses and mastoids are clear. There are no worrisome calvarial lesions. Impression: No evidence of acute intracranial abnormality. Electronically Signed by:JUANA LOZANO DO Date & Time: 02/05/252018 Dictated by: JUANA LOZANO DO Dictation date and time: 02/05/252018 Primary Care Provider: NO PRIMARY CARE PROVIDER cc: JAJA RODAS NP ~ Medical Decision Making Additional information obtaine: old records Findings The patient was seen with the nurse practitioner the patient had a seizure witnessed today, patient has stopped drinking two days ago. Patient is a heavy alcohol user. The patient was tremulous and had clinical alcohol withdrawal here in the emergency department the patient has a CT head that was unremarkable patient was given IV fluids as well as p.o. Ativan with improvement of his symptoms the patient will be discharged on a Librium taper the patient also was nitrite positive in his urine and so was given 2 g of ceftriaxone and he will be discharged on a week's worth of antibiotics. The patient's groundwater monitoring technician was interpreted as sinus rhythm and the patient's pulse oximetry was interpreted as normal and adequate. Differential Dx:Considerations: Include: Closed head injury, Pneumothorax, Pulmonary contusion, Vascular injury, Abrasion(s), Contusion(s), Hematoma(s) Departure Disposition: HOME / SELF CARE / HOMELESS Impression: Primary Impression: Alcohol withdrawal Qualified Codes: F10.930 - Alcohol use, unspecified with withdrawal, uncomplicated Additional Impression: Urinary tract infection Qualified Codes: N30.00 - Acute cystitis without hematuria Referrals: NO PRIMARY CARE PROVIDER (PCP) Prescriptions Chlordiazepoxide Hcl (Librium) 25 Mg Capsule 25 MG PO UD PRN for for anxiety/agitation, #32 CAP use 2 tablets by mouth 3 times a day for 2 days then 2 tablets twice a day for 2 days then 1 tablet 3 times a day for 2 days then one tablet twice a day for 2 days then 1 tablet a day for 2 days Prov: PILAR COX MD 02/06/25 Cephalexin*Monohydrate* (Keflex*) 500 Mg Capsule 2 CAP PO BID, #28 CAP Prov: PILAR COX MD 02/06/25 Signature Scribe Signature: No scribe Attestation: The note accurately reflects work and decisions made by me.Pilar Cox MD 02/06/25 01:51 JAJA RODAS NP Feb 05, 2025 19:46 PILAR COX MD Feb 05, 2025 23:31
--- NOTE | 2025-02-05 20:21 | RADIOLOGY REPORT ---
Procedure: CT CT HEAD [facility] Study Date and Requested Time: 02/05/2025 07:48 PM History: syncope Comparison: CT CT HEAD on DOS: 06/18/24 Dose: CTDI: 64.57 mGy DLP: 1185.59 mGycm Technique: Multiplanar images obtained through the brain without intravenous contrast. Findings: Normal brain volume and formation. No hemorrhages, masses, mass effect, midline shift, herniation or cytotoxic edema following a large vascular territory. No intra-axial or extra-axial fluid collections. No evidence of hydrocephalus. The basal cisterns are patent. The pituitary gland, sella and parasellar regions are unremarkable. The cerebellar tonsils are in normal position. The cerebellum is unremarkable. The orbits and globes are unremarkable. Layering fluid within the left maxillary sinus with opacification of the right posterior ethmoid air cell. Otherwise, the paranasal sinuses and mastoids are clear. There are no worrisome calvarial lesions. Impression: No evidence of acute intracranial abnormality.
[2025-02-05 21:43] LABS: MEAN PLATELET VOLUME 9.3 FL (7.4-10.4); RED CELL DISTRIBUTION WIDTH 14.6 % (11.5-14.5)
[2025-02-05 21:59] LABS: CREATININE 0.86 MG/DL (0.60-1.10); ETHANOL < 10 MG/DL (<10); TOTAL CARBON DIOXIDE 32.6 MMOL/L (24-32); eGFR > 90 ML/MIN
[2025-02-05 23:20] LABS: LEUKOCYTE ESTERASE ,URINE NEGATIVE (Neg); NITRITES, URINE POSITIVE (Neg); OCCULT BLOOD,URINE TRACE-INTACT (Neg)
[2025-02-05] MEDS: acetaminophen 1,000mg/100ml IV 100 ML IV STA (23:44)
[2025-02-05] MEDS: normal saline 1000ML IV soln IVB ONE (23:49)
[2025-02-05] MEDS: ketorolac trometh 15mg/ml vial 15 MG/ML ML IV ONE (23:49)
[2025-02-06] LABS: UA COLLECTION TYPE NON-SPECIFIED
[2025-02-06 00:03] LABS: SQUAMOUS EPITHELIAL CELL,UR FEW /LPF (FEW)
[2025-02-06] MEDS: CefTRIAXone 2gm/D5W 50ml BAG 50 ML IV ONE (00:33)
[2025-02-06] MEDS: potassium Cl 20 mEq SR tablet PO STA (00:34)
[2025-02-06] MEDS ORDERED: CHLO25CA10 PO (00:43)
[2025-02-06] MEDS ORDERED: CEPH-585 PO (00:43)
[2025-02-06 01:39] VITALS: BP 133/84; PULSE 70; RESP 16; TEMP 98.1; O2SAT 99
== END 2025-02-06 01:41 | disposition home or self-care (01) ==
LOC: ER 19:25
DX: F10.239 Alcohol dependence with withdrawal, unspecified (principal); N39.0 Urinary tract infection, site not specified; R55 Syncope and collapse; R42 Dizziness and giddiness; Y90.9 Presence of alcohol in blood, level not specified
CPT/HCPCS: 36415; 70450; 80053; 80320; 81001; 85025; 87088; 96365; 96367; 96375; 99285; J0131; J0696; J1885; J7030; 81003

== ENCOUNTER 2025-02-18 10:38 | Emergency (ER) | payer MEDICAID ==
[~2025-02-18] VITALS: Ht 185.4 cm; Wt 86.0 kg
[~2025-02-18 10:38] MED LIST changes: +CEPH-585 PO; +CHLO25CA10 PO; -NEOM10DR45 RIGHT EAR
--- NOTE | 2025-02-18 11:31 | RADIOLOGY REPORT ---
EXAM: DI SHOULDER, COMPLETE (MIN 2 VWS) CLINICAL INDICATION: Shoulder Pain TECHNIQUE: DI SHOULDER, COMPLETE (MIN 2 VWS) Comparison: None FINDINGS/IMPRESSION: There is no evidence of acute fracture or dislocation. The visualized joint space is well maintained. The alignment is anatomical. There is no radiopaque foreign body.
--- NOTE | 2025-02-18 13:42 | Physician Documentation ---
History of Present Illness ~ Chief Complaint: Seizure Stated Complaint: POST SZ COMPLICATIONS Time Seen by MD: 13:41 Primary Medical Doctor: none HPI 40-year-old male, history of alcohol abuse, presenting with a possible seizure He tells me that he recently stopped drinking alcohol, he had a seizure and then was seen in the emergency department. He was discharged with Librium. He took the full course of this medication and thought he was doing okay. However then he had an episode today where he thinks he had another seizure. He tells me he was walking across the room when he suddenly woke up on the floor, with no memory of this event. Unknown downtime. He reports significant pain in his left shoulder. The pain is located in the left anterior shoulder. Denies any other significant injuries or pain. No head or neck injury. No right arm injury. He does report some mild discomfort to the left hip, but was able to walk and does not think anything is broken. His does feel more shaky than normal. He did have 1 beer earlier when he noticed how shaky he was. Medication Reconciliation Allergies: Coded Allergies: No Known Allergies (Unverified , 02/05/25) Scheduled Cephalexin*Monohydrate* (Keflex*), 2 CAP PO BID Nicotine 21 MG Patch* (Habitrol 21 MG Patch*), 1 PATCH TD DAILY Omeprazole (Omeprazole), 1 CAP PO DAILY Pantoprazole Sodium (Pantoprazole Sodium), 40 MG PO DAILY Sucralfate (Carafate), 1 TAB PO Q6H Sucralfate (Carafate), 1 TAB PO ACHS Scheduled PRN Chlordiazepoxide Hcl (Librium), 25 MG PO UD PRN for for anxiety/agitation Ibuprofen (Ibuprofen), 1 TAB PO Q8H PRN for pain ONDANSETRON ODT 4mg tablet (Ondansetron Odt), 1 TAB PO Q6H PRN PRN for nausea/vomiting Oxycodone HCl (Oxycodone HCl), 1 CAP PO Q12H PRN PRN for pain Sucralfate (Sucralfate), 1 GM PO TID PRN for abdominal cramps Past Medical History Past Medical History: No Pertinent History Past Surgical History: noncontributory Alcohol Use: Heavy Drug Use: none Lives In: Home Review of Systems Constitutional: Denies: fever Neurological: Reports: fainting Musculoskeletal: Reports: joint pain Physical Exam Vital Signs: Temperature: 97.9, Source: Temporal, Heart Rate: 108, Respiratory Rate: 18, BP: 128/98, Pulse Oximetry: 97, Weight: 86.000 Physical Exam General: This is a pleasant young man sitting calmly in bed HEENT: Atraumatic, oropharynx appears dry, he does have tongue fasciculations Heart: Mild tachycardic, appears regular Lungs: Clear breath sounds bilateral, normal work of breathing, normal oxygen saturation on room air Extremities: Warm and well-perfused Left upper extremity: The patient has significant focal tenderness on palpation of the anterior left shoulder diffusely. Decreased range of motion due to pain in this region. No focal bony point tenderness on palpation of the elbow or lower arm. Neuro: Alert and oriented Psychiatric: Appears anxious, is tremulous and has signs of alcohol withdrawal Progress Results/Orders Results/Orders Orders - MIGUEL INFANTE MD Shoulder, Complete (Min 2 Vws) (02/18/25 11:03) * Ice Extremity* (02/18/25 14:27) Completed Orders - MIGUEL INFANTE MD Shoulder, Complete (Min 2 Vws) (02/18/25 11:03) Cbc/Diff (02/18/25 13:52) CMP (02/18/25 13:52) Ethanol (02/18/25 13:52) LA (02/18/25 13:52) Diazepam Inj (Valium Inj) (02/18/25 14:25) Normal Saline 1000ml (0.9% Sodium Chlori (02/18/25 14:25) Ketorolac Trometh 15mg/Ml Vial (Toradol (02/18/25 14:25) Chlordiazepoxide Capsule (Librium Capsul (02/18/25 14:25) Oxycodone Immed Release Tablet (Oxy Ir T (02/18/25 15:20) Electrocardiogram (02/18/25 15:27) Phenobarbital Inj (Phenobarbital Inj.) (02/18/25 16:00) Medications Received in ER Medications (Trade) Dose Ordered Sig/Birgit Route PRN Reason Start Time Stop Time Status Last Admin Dose Admin (Valium inj) 5 mg ONCE ONCE IV 02/18/25 14:25 02/18/25 14:26 DC 02/18/25 15:07 5 MG Sodium Chloride 1,000 ml @ 1,000 mls/hr ONCE ONCE IV 02/18/25 14:25 02/18/25 15:24 DC 02/18/25 15:05 1,000 MLS/HR (Toradol injection) 15 mg ONCE ONCE IV 02/18/25 14:25 02/18/25 14:26 DC 02/18/25 15:07 15 MG (Librium capsule) 50 mg ONCE ONCE PO 02/18/25 14:25 02/18/25 14:30 DC 02/18/25 15:06 50 MG (OXY IR tablet) 5 mg ONCE ONCE PO 02/18/25 15:20 02/18/25 15:21 DC 02/18/25 16:10 5 MG Phenobarbital Sodium 260 mg/ Sodium Chloride 100 ml @ 200 mls/hr ONCE ONCE IV 02/18/25 16:00 02/18/25 16:29 DC 02/18/25 16:00 200 MLS/HR Vital Signs 02/18/25 02/18/25 02/18/25 02/18/25 10:59 14:07 15:06 15:07 Temp 97.9 Pulse 108 101 Resp 18 16 18 15 B/P (MAP) 128/98 121/78 (92) Pulse Ox 97 98 O2 Flow Rate 0 02/18/25 02/18/25 02/18/25 02/18/25 15:07 16:05 16:10 16:50 Resp 15 16 16 14 02/18/25 02/18/25 17:08 17:09 Pulse 88 Resp 16 B/P (MAP) 125/77 (93) Pulse Ox 98 97 O2 Delivery Room Air* O2 Flow Rate 0 0 FiO2 21 Laboratory Tests Test 02/18/25 13:49 02/18/25 14:50 White Blood Count 8.0 Red Blood Count 4.49 L Hemoglobin 14.7 Hematocrit 42.8 Mean Corpuscular Volume 95.2 Mean Corpuscular Hemoglobin 32.8 H Mean Corpuscular Hemoglobin Concent 34.4 Red Cell Distribution Width 14.7 H Platelet Count 338 Mean Platelet Volume 8.2 Neutrophils (%) (Auto) 66.9 Lymphocytes (%) (Auto) 20.8 L Monocytes (%) (Auto) 7.7 Eosinophils (%) (Auto) 3.2 Basophils (%) (Auto) 1.4 H Neutrophils # (Auto) 5.4 Lymphocytes # (Auto) 1.7 Monocytes # (Auto) 0.6 Eosinophils # (Auto) 0.3 Basophils # (Auto) 0.1 CBC Comment Sodium Level 139 Potassium Level 3.4 L Chloride Level 101 Carbon Dioxide Level 29.8 Anion Gap 8 Blood Urea Nitrogen 8 Creatinine 0.90 Estimated GFR/1.73 m2 > 90 BUN/Creatinine Ratio 8.9 L Glucose Level 108 H Calcium Level 9.0 Total Bilirubin 0.7 Aspartate Amino Transf (AST/SGOT) 103 H Alanine Aminotransferase (ALT/SGPT) 211 H Alkaline Phosphatase 90 Total Protein 8.2 Albumin 4.0 Globulin 4.2 Albumin/Globulin Ratio 1.0 L Chemistry Comments Ethyl Alcohol Level 82 H Lactic Acid Level 1.7 EKG/XRAY/CT/US/VASC/MRI Bone/Soft Tissue X-Ray (Ext.) : Additional Comment I personally interpreted the x-ray, and it shows: No fracture, dislocation, or other acute abnormality to the shoulder Medical Decision Making Additional information obtaine: family Findings Family reports history of significant alcohol withdrawal Differential Dx:Considerations: Include: Psychogenic seizure, Due to alcohol withdrawl, Anticonvulsant withdrawl, Due to CVA/TIA, Due to drug ingestion, Syncope Additional Comment The patient presents with a possible seizure versus syncopal episode. His exam at time of arrival seems consistent with alcohol withdrawal. He was given symptomatic treatment for this. He also has shoulder pain, but x-ray shows no fracture or dislocation. Labs grossly unremarkable. After shared decision-making conversation, we decided to proceed with a phenoba rb loading dose, given that he had already tried Librium taper in the past. He was given this with good resolution of his symptoms. He will be discharged with symptomatic treatment for his shoulder contusion, and home care instructions for alcohol withdrawal. Strict return precautions given. Did discuss admission with the patient, but he repeatedly declined. Departure Time of Disposition: 16:30 Disposition: 01 HOME / SELF CARE / HOMELESS Impression: Primary Impression: Alcohol withdrawal syndrome Additional Impression: Shoulder contusion Condition: Improved Discharge Instructions: Alcohol Withdrawal Syndrome Referrals: NO PRIMARY CARE PROVIDER (PCP) Prescriptions Oxycodone HCl (Oxycodone HCl) 5 Mg Capsule 1 CAP PO Q12H PRN PRN for pain for 5 Days, #10 CAP 0 Refills Prov: MIGUEL INFANTE MD 02/18/25 Education Educated: Patient Educated regarding: diagnosis, treatment, need for follow up Signature Scribe Signature: na Attestation: MIGUEL Mattson MD Feb 18, 2025 13:42
[2025-02-18 14:32] LABS: MEAN PLATELET VOLUME 8.2 FL (7.4-10.4); RED CELL DISTRIBUTION WIDTH 14.7 % (11.5-14.5)
[2025-02-18 14:42] LABS: CREATININE 0.90 MG/DL (0.60-1.10); ETHANOL 82 MG/DL (<10); TOTAL CARBON DIOXIDE 29.8 MMOL/L (24-32); eCRCL 122 ML/MIN; eGFR > 90 ML/MIN
[2025-02-18] MEDS: normal saline 1000ml 1,000 ML IV ONE (15:05)
[2025-02-18] MEDS: diazepam inj 5 MG/ML inj. IV ONE (15:07)
[2025-02-18] MEDS: ketorolac trometh 15mg/ml vial 15 MG/ML ML IV ONE (15:07)
--- NOTE | 2025-02-18 15:50 | ELECTROCARDIOGRAPH REPORT ---
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
[2025-02-18] MEDS: oxyCODONE IR 5mg (immed. release) tablet PO ONE (16:10)
[2025-02-18] MEDS ORDERED: OXYC5CAP22 PO (18:20)
[2025-02-18 18:54] VITALS: BP 104/73; PULSE 77; RESP 15; TEMP 98; O2SAT 99
== END 2025-02-18 18:55 | disposition home or self-care (01) ==
LOC: ER 10:39
DX: S40.012A Contusion of left shoulder, initial encounter (principal); F10.239 Alcohol dependence with withdrawal, unspecified; Y90.9 Presence of alcohol in blood, level not specified; X58.XXXA Exposure to other specified factors, initial encounter; Y93.01 Activity, walking, marching and hiking; Y92.89 Other specified places as the place of occurrence of the external cause; Y99.8 Other external cause status
CPT/HCPCS: 36415; 73030; 80053; 80320; 83605; 85025; 93005; 96361; 96365; 96366; 96375; 99285; J1885; J2560; J3360; J7030; A4565

== ENCOUNTER 2025-03-07 12:12 | Inpatient (IN) | payer MEDICAID ==
[~2025-03-07] VITALS: Ht 185.4 cm; Wt 84.2 kg
[~2025-03-07 12:12] MED LIST changes: +OXYC5CAP22 PO
[2025-03-07] MEDS: normal saline 1000ml 1,000 ML IV ONE (15:11)
[2025-03-07] MEDS: ondansetron/PF 4mg/2ml inj IV ONE (15:11)
[2025-03-07] MEDS ORDERED: thiamine inj. 100 MG in normal saline 100ml IV soln 100 ML IV ONE (15:55)
[2025-03-07 16:16] LABS: MEAN PLATELET VOLUME 9.0 FL (7.4-10.4); RED CELL DISTRIBUTION WIDTH 14.3 % (11.5-14.5)
[2025-03-07] MEDS: diazepam inj 5 MG/ML inj. IV ONE ×3 (16:16→17:26)
[2025-03-07] MEDS: thiamine 100mg/ml 2ml inj. IV ONE (16:22)
[2025-03-07] MEDS: normal saline 1000ML IV soln IVB ONE (16:23)
--- NOTE | 2025-03-07 16:35 | Physician Documentation ---
History of Present Illness ~ Chief Complaint: ETOH Withdrawl Stated Complaint: ETOH Time Seen by MD: 14:58 Primary Medical Doctor: none Source: patient Mode of Arrival: POV Exam Limitations: no limitations HPI Patient with no past medical history presents for alcohol withdrawals. He has history of alcohol withdrawal seizures in the past. His last seizure was February 17. At that time he fell and hurt his left shoulder. Complaining of left shoulder pain. At he was given seizure medications at one point and told not to drink while taking these medications however he has continued to drink. He drinks about a 0.5 gal of vodka per day. Wishing to stop and requesting assistance. He has full body tremors. Last drink was today. Tetanus within 5 years?: No Medication Reconciliation Allergies: Coded Allergies: No Known Allergies (Unverified , 03/07/25) Scheduled Cephalexin*Monohydrate* (Keflex*), 2 CAP PO BID Nicotine 21 MG Patch* (Habitrol 21 MG Patch*), 1 PATCH TD DAILY Omeprazole (Omeprazole), 1 CAP PO DAILY Pantoprazole Sodium (Pantoprazole Sodium), 40 MG PO DAILY Sucralfate (Carafate), 1 TAB PO Q6H Sucralfate (Carafate), 1 TAB PO ACHS Scheduled PRN Chlordiazepoxide Hcl (Librium), 25 MG PO UD PRN for for anxiety/agitation Ibuprofen (Ibuprofen), 1 TAB PO Q8H PRN for pain ONDANSETRON ODT 4mg tablet (Ondansetron Odt), 1 TAB PO Q6H PRN PRN for nausea/vomiting Oxycodone HCl (Oxycodone HCl), 1 CAP PO Q12H PRN PRN for pain Sucralfate (Sucralfate), 1 GM PO TID PRN for abdominal cramps Miscellaneous Medications Home Med List (No Home Medications), (Reported) Past Medical History Past Medical History: No Pertinent History Past Surgical History: noncontributory Smoking Status: Current every day smoker Alcohol Use: Heavy Drug Use: none Lives In: Home Review of Systems ROS Review of systems negative except documented in HPI. Physical Exam Vital Signs: RN Vital Signs have been reviewed: Yes, Temperature: 97.6, Source: Temporal, Heart Rate: 95, Respiratory Rate: 20, BP: 142/97, Pulse Oximetry: 96, Weight: 84.200 Oxygen Flow Rate: 0 Pulse Oximetry Reflects: adequate oxygenation Physical Exam General: Awake, alert, oriented. Full body shaking. Eyes: Eyes are bloodshot. Pupils equal and reactive. EOMI. No nystagmus. Respiratory: Lungs are clear to auscultation bilaterally. No respiratory distress. Chest: Normal shape and size. No accessory muscle use. Cardiovascular: Regular rate and rhythm. S1-S2. No murmur, gallop, rub. Gastrointestinal: Abdomen is soft. Nontender to palpation. Bowel sounds present. Extremities: No lower extremity edema, cyanosis or clubbing. Neurologic: Alert and oriented x4. Nonfocal Psychiatric: Normal mood and affect. Skin: Normal color. Warm and dry. Progress Progress Note Patient re-evaluated on multiple occasions during his emergency department stay. Despite Valium he continued to shake uncontrollably. He was starting to see flashes of light consistent with withdrawal hallucinations. He was therefore given phenobarbital and recommended for admission. Results/Orders Results/Orders Orders - MARTIN NAVA NP Shoulder, Complete (Min 2 Vws) (03/07/25 17:31) Page Hospitalist (03/07/25 18:40) Fill Out Med Reconciliation (03/07/25 18:40) Phenobarbital Inj (Phenobarbital Inj.) (03/07/25 18:55) Phenobarbital Inj (Phenobarbital Inj.) (03/08/25 00:00) Completed Orders - MARTIN NAVA NP Normal Saline 1000ml (0.9% Sodium Chlori (03/07/25 14:55) Ondansetron Inj. (Zofran 4mg/2ml Vial) (03/07/25 14:55) Normal Saline 1000ml (0.9% Sodium Chlori (03/07/25 15:55) Diazepam Inj (Valium Inj) (03/07/25 15:55) Folic Acid Tablet (Folic Acid Tablet) (03/07/25 15:55) Cbc/Diff (03/07/25 15:51) CMP (03/07/25 15:51) Lipase (03/07/25 15:51) Thiamine Inj. (Thiamine Inj.) (03/07/25 16:05) Diazepam Inj (Valium Inj) (03/07/25 17:00) Diazepam Inj (Valium Inj) (03/07/25 17:05) Shoulder, Complete (Min 2 Vws) (03/07/25 17:31) Hydrocodone/Apap 5/325mg Tab ([place] 5/32 (03/07/25 17:35) Phenobarbital Inj (Phenobarbital Inj.) (03/07/25 20:00) Ethanol (03/07/25 16:06) MG (03/07/25 16:06) PHOS (03/07/25 16:06) TSH (03/07/25 16:06) Medications Received in ER Medications (Trade) Dose Ordered Sig/Birgit Route PRN Reason Start Time Stop Time Status Last Admin Dose Admin Sodium Chloride 1,000 ml @ 1,000 mls/hr ONCE ONCE IV 03/07/25 14:55 03/07/25 15:54 DC 03/07/25 15:11 1,000 MLS/HR (Zofran 4mg/2ml vial) 4 mg ONCE ONCE IV 03/07/25 14:55 03/07/25 14:56 DC 03/07/25 15:11 4 MG (0.9% sodium chloride (NS) 1000ml IV soln) 1,000 ml ONCE ONCE IVB 03/07/25 15:55 03/07/25 15:59 DC 03/07/25 16:23 1,000 ML (Valium inj) 5 mg ONCE ONCE IV 03/07/25 15:55 03/07/25 16:01 DC 03/07/25 16:16 5 MG (folic acid tablet) 1 mg ONCE ONCE PO 03/07/25 15:55 03/07/25 15:59 DC 03/07/25 16:22 1 MG (thiamine inj.) 100 mg ONCE ONCE IV 03/07/25 16:05 03/07/25 16:06 DC 03/07/25 16:22 100 MG (Valium inj) 5 mg ONCE ONCE IV 03/07/25 17:05 03/07/25 17:06 DC 03/07/25 17:26 5 MG ([place] 5/325mg tablet) 1 tab ONCE ONCE PO 03/07/25 17:35 03/07/25 17:41 DC 03/07/25 18:48 1 TAB Phenobarbital Sodium 260 mg/ Sodium Chloride 100 ml @ 200 mls/hr ONCE IV 03/07/25 18:55 03/07/25 19:40 200 MLS/HR Vital Signs 03/07/25 03/07/25 03/07/25 03/07/25 12:28 14:30 14:34 15:00 Temp 97.6 Pulse 104 95 92 Resp 16 18 15 B/P (MAP) 146/107 142/97 (112) 136/97 (110) Pulse Ox 98 96 97 O2 Flow Rate 0 0 0 03/07/25 03/07/25 03/07/25 03/07/25 16:00 16:16 16:55 17:26 Pulse 92 115 Resp 18 20 18 18 B/P (MAP) 138/98 (111) 145/97 (113) Pulse Ox 95 97 O2 Flow Rate 0 0 03/07/25 03/07/25 03/07/25 03/07/25 17:30 18:40 18:44 18:48 Pulse 102 98 Resp 13 24 19 19 B/P (MAP) 153/96 (115) 151/103 (119) Pulse Ox 98 98 O2 Flow Rate 0 0 03/07/25 19:42 Pulse 91 Resp 15 B/P (MAP) 15/90 (65) Pulse Ox 96 O2 Flow Rate 0 Laboratory Tests Test 03/07/25 16:06 White Blood Count 4.7 Red Blood Count 4.59 L Hemoglobin 15.1 Hematocrit 44.1 Mean Corpuscular Volume 96.1 Mean Corpuscular Hemoglobin 33.0 H Mean Corpuscular Hemoglobin Concent 34.3 Red Cell Distribution Width 14.3 Platelet Count 105 L Mean Platelet Volume 9.0 Neutrophils (%) (Auto) 57.1 Lymphocytes (%) (Auto) 32.4 Monocytes (%) (Auto) 7.7 Eosinophils (%) (Auto) 1.8 Basophils (%) (Auto) 1.0 Neutrophils # (Auto) 2.7 Lymphocytes # (Auto) 1.5 Monocytes # (Auto) 0.4 Eosinophils # (Auto) 0.1 Basophils # (Auto) 0.0 CBC Comment Prothrombin Time 10.3 INR International Normalized Ratio 1.0 Activated Partial Thromboplast Time 29 Coagulation Comments Sodium Level 141 Potassium Level 3.8 Chloride Level 103 Carbon Dioxide Level 26.6 Anion Gap 11 Blood Urea Nitrogen 2 L Creatinine 0.89 Estimated GFR/1.73 m2 > 90 BUN/Creatinine Ratio 2.2 L Glucose Level 98 Lactic Acid Level 1.8 Calcium Level 8.6 Phosphorus Level 3.1 Magnesium Level 1.9 Total Bilirubin 1.1 H Aspartate Amino Transf (AST/SGOT) 71 H Alanine Aminotransferase (ALT/SGPT) 91 H Alkaline Phosphatase 81 Total Protein 7.9 Albumin 4.1 Globulin 3.8 Albumin/Globulin Ratio 1.1 Lipase 55 Thyroid Stimulating Hormone (TSH) 1.20 Chemistry Comments Ethyl Alcohol Level 135 H EKG/XRAY/CT/US/VASC/MRI Bone/Soft Tissue X-Ray (Ext.) : Views: 3 VIEW Indication: pain, trauma Location: Shoulder Impression: normal Additional Comment [address] [address] DIAGNOSTIC RADIOLOGY Patient: MICHAEL PARISI Medical Record: [id number] [facility] : 1985, Age: 40 Sex: Male Location: ER Patient Status: [facility] ER Service Date/Time: 03/07/251730 Ordering Physician: MARTIN NAVA NP Exam: SHOULDER, COMPLETE (MIN 2 VWS) CLINICAL INDICATION: left should per with recent fall TECHNIQUE: DI SHOULDER, COMPLETE (MIN 2 VWS) Comparison: DI SHOULDER, COMPLETE (MIN 2 VWS) on DOS: 02/18/25 FINDINGS/IMPRESSION: : There is no evidence of acute fracture or dislocation. Soft tissues are unremarkable. Electronically Signed by:TRESA CEDENO MD Date & Time: 03/07/251758 Dictated by: TRESA CEDENO MD Dictation date and time: 03/07/251739 Primary Care Provider: NO PRIMARY CARE PROVIDER cc: MARTIN NAVA NP ~ Medical Decision Making Additional information obtaine: old records Findings Patient with known history of alcohol withdrawal seizures presents secondary to alcohol withdrawal symptoms. He is wanting to quit alcohol and go into a program. He was last seen on February 18, 2025. The record was reviewed. He came in with alcohol withdrawal symptoms after a seizure with fall and injury to his left shoulder. His left shoulder was x-rayed with no acute fracture or dislocation. He was given phenobarbital which improved his symptoms and he was discharged home. He continued to drink alcohol after this and wishes to quit. Today he presents with full body tremors and significant withdrawal symptoms. He was treated with Valium. Continued to have significant tremors. Therefore was given phenobarbital. Given his significant withdrawal symptoms and his history of alcohol withdrawal seizures I recommended him to be admitted. Was given folic acid and thiamine given his alcoholism. Laboratory evaluation was reassuring. No significantly elevated liver enzymes. No evidence of pancreatitis. There was no significant abdominal pain on exam. His left shoulder pain: He has exam is consistent with a rotator cuff injury. He is unable to lift the arm above the level of the head. Complaining of significant pain with movement. States he has fallen multiple times since then. Therefore it was re-x-rayed. There is still no evidence of acute fracture dislocation. He was given pain medication and encouraged to follow up outpatient. He is doing the physical therapy maneuvers that was recommended for him previously. Ultimately, given his history of withdrawal seizures he was recommended for admi ssion. Case was reviewed with the hospitalist service who agrees to evaluate for admission. The case was discussed with the attending physician, Celena. The plan of care, diagnostic evaluation and medical decision making were discussed. The attending physician was available for consultation, where the diagnostic findings as well as the eventual disposition. Differential Dx:Considerations: Intoxication - ETOH, Intoxication - other drug, Sub. Abuse -continuous, Dehydration, Hepatitis, Pancreatitis, Thiamine deficiency Departure Impression: Primary Impression: Alcohol withdrawal syndrome Qualified Codes: F10.930 - Alcohol use, unspecified with withdrawal, uncomplicated Additional Impression: Shoulder pain Qualified Codes: M25.512 - Pain in left shoulder Referrals: NO PRIMARY CARE PROVIDER (PCP) Signature Scribe Signature: No scribe Attestation: The note accurately reflects work and decisions made by me.Martin Montaño NP 03/07/25 20:57 This note was created with the assistance of voice recognition software whereby errors in grammar, syntax, and/or spelling may have occurred despite active proofreading efforts by the author. Please do not hesitate to contact the provider for clarification or for questions regarding the content of this document. MARTIN NAVA NP Mar 07, 2025 16:35
[2025-03-07 16:38] LABS: CREATININE 0.89 MG/DL (0.60-1.10); TOTAL CARBON DIOXIDE 26.6 MMOL/L (24-32); eCRCL 123 ML/MIN; eGFR > 90 ML/MIN
--- NOTE | 2025-03-07 18:02 | RADIOLOGY REPORT ---
CLINICAL INDICATION: left should per with recent fall TECHNIQUE: DI SHOULDER, COMPLETE (MIN 2 VWS) Comparison: DI SHOULDER, COMPLETE (MIN 2 VWS) on DOS: 02/18/25 FINDINGS/IMPRESSION: : There is no evidence of acute fracture or dislocation. Soft tissues are unremarkable.
[2025-03-07] MEDS: HYDROcodone/acetaminophen 5mg/325mg tablet PO ONE (18:48)
[2025-03-07] MEDS ORDERED: magnesium hydroxide 30ml (MOM) UD suspension PO PRN (19:45)
[2025-03-07] MEDS ORDERED: magnesium sulf-water 2g/50mL 50 ML IV PRN (19:45)
[2025-03-07] MEDS ORDERED: ondansetron/PF 4mg/2ml inj IV PRN (19:45)
[2025-03-07] MEDS ORDERED: potassium Cl 20 mEq SR tablet PO PRN (19:45)
[2025-03-07] MEDS ORDERED: potassium Cl 40MEQ/1/2NS 520ml 520 ML IV PRN (19:45)
[2025-03-07] MEDS ORDERED: mag hydrox/Alum hydrox/simeth 30ml oral suspension PO PRN (19:45)
[2025-03-07] MEDS ORDERED: magnesium sulf-water 4G/100mL 100 ML IV PRN (19:45)
[2025-03-07] MEDS ORDERED: magnesium Cl slow-release 64mg tablet PO PRN (19:45)
[2025-03-07] MEDS ORDERED: NO HOME MEDS (19:47)
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
[2025-03-07] MEDS: K and/or MAG REPLACEMENT MC SCH (20:00)
[2025-03-07 20:12] LABS: APTT 29 SECONDS (22-32); INR 1.0 INR
[2025-03-07 20:14] LABS: LEUKOCYTE ESTERASE ,URINE NEGATIVE (Neg); NITRITES, URINE NEGATIVE (Neg); OCCULT BLOOD,URINE NEGATIVE (Neg)
--- NOTE | 2025-03-07 20:14 | ELECTROCARDIOGRAPH REPORT ---
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 CLIFFORD Hall Measurements Intervals [place] Rate: 88 P: 52 [place]: 160 QRS: 73 QRSD: 89 T: 61 QT: 369 QTc: 447 Interpretive Statements Sinus rhythm Baseline wander in lead(s) V3 Electronically Signed On 03-09-2025 12:54:[address] CLIFFORD Hall Please click the below link to view image of tracing.
[2025-03-07 20:17] LABS: URINE AMPHETAMINE SCREEN NEGATIVE (Neg); URINE BARBITUATE SCREEN NEGATIVE (Neg); URINE BENZODIAZEPINES SCREEN POSITIVE (Neg); URINE CANNABINOID SCREEN NEGATIVE (Neg); URINE COCAINE SCREEN NEGATIVE (Neg); URINE METHADONE SCREEN NEGATIVE (Neg); URINE OPIATE SCREEN NEGATIVE (Neg); URINE PHENCYCLIDINE SCREEN NEGATIVE (Neg)
[2025-03-07 20:19] LABS: UA COLLECTION TYPE CLN CATCH MIDSTREAM
[2025-03-07 20:24] LABS: ETHANOL 135 MG/DL (<10); PHOSPHORUS 3.1 MG/DL (2.3-4.5)
[2025-03-07] MEDS: normal saline 1000ml 1,000 ML IV SCH (20:46)
[2025-03-07] MEDS: thiamine 100mg/ml 2ml inj. IV SCH (20:48)
[2025-03-07] MEDS: heparin, porcine 5000 units/ml vial SQ SCH (20:52)
[2025-03-07] MEDS: docusate sod 100mg capsule PO SCH (20:53)
[2025-03-08 03:04] LABS: MEAN PLATELET VOLUME 8.8 FL (7.4-10.4); RED CELL DISTRIBUTION WIDTH 13.7 % (11.5-14.5)
[2025-03-08 03:33] LABS: CREATININE 0.69 MG/DL (0.60-1.10); TOTAL CARBON DIOXIDE 27.0 MMOL/L (24-32); eCRCL 159 ML/MIN; eGFR > 90 ML/MIN
[2025-03-08 07:18] VITALS: BP 129/94; PULSE 88; RESP 18; TEMP 97.5; O2SAT 96
[2025-03-08 08:00] VITALS: RESP 22; O2SAT 96
[2025-03-08] MEDS: folic acid 1mg/0.2ml inj IV SCH (08:51)
[2025-03-08] MEDS: potassium Cl 20 mEq SR tablet PO PRN (08:55)
[2025-03-08 11:00] VITALS: BP 127/86; PULSE 68; RESP 24; TEMP 97.8; O2SAT 100
[2025-03-08] MEDS: diazepam inj 5 MG/ML inj. IV PRN (12:07)
[2025-03-08 15:00] VITALS: BP 119/86; PULSE 90; RESP 18; TEMP 97.7; O2SAT 100
--- NOTE | 2025-03-08 17:04 | RADIOLOGY REPORT ---
ULTRASOUND ABDOMEN: REASON FOR EXAM: Transaminitis TECHNIQUE: Real-time sector scans in the transverse and longitudinal planes were obtained through the abdomen. FINDINGS: The liver is at the upper limits of normal for size at 17.1 cm in length. The liver is Profoundly echogenic. The liver surface appears smooth. There is hepatopetal flow in the portal vein. There is no intrahepatic biliary ductal dilatation. The common bile duct measures 5 mm. No gallstones or sludge are identified. There is no gallbladder wall thickening nor pericholecystic fluid. There is no sonographic Alex's sign. The visualized portion of the pancreas is unremarkable. The spleen is not enlarged. The right kidney measures 10.2 cm. The left kidney measures 11.4 cm. No hydronephrosis or nephrolithiasis is identified. There is no evidence of renal mass or cyst. The visualized portions of the abdominal aorta demonstrate no evidence of aneurysmal dilatation. The visualized inferior vena cava is unremarkable. There is no free fluid identified in the right upper quadrant. IMPRESSION: Borderline hepatomegaly. Profoundly echogenic liver parenchyma. This may be secondary to steatosis or another diffuse hepatic process. Correlate clinically and with liver function tests. No gallstone is identified. No sonographic Alex's sign. No dilation of the common bile duct identified.
[2025-03-08 18:00] VITALS: BP 123/82; PULSE 79; RESP 15; TEMP 98.2; O2SAT 96
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
[2025-03-08] MEDS: nicotine 14mg patch - 24hr TD ONE (21:13)
[2025-03-08 22:00] VITALS: BP 124/75; PULSE 68; RESP 16; TEMP 97.7; O2SAT 98
[2025-03-09] VITALS (8 sets, daily range): BP systolic 116–144; BP diastolic 69–83; PULSE 69–84; RESP 13–20; TEMP 97.2–98.6; O2SAT 95–98
[2025-03-09 06:07] LABS: MEAN PLATELET VOLUME 9.3 FL (7.4-10.4); RED CELL DISTRIBUTION WIDTH 13.6 % (11.5-14.5)
[2025-03-09 06:47] LABS: CREATININE 0.73 MG/DL (0.60-1.10); TOTAL CARBON DIOXIDE 24.3 MMOL/L (24-32); eCRCL 151 ML/MIN; eGFR > 90 ML/MIN
[2025-03-09] MEDS: diazepam inj 5 MG/ML inj. IV PRN (09:19)
[2025-03-09] MEDS: nicotine 21mg patch - 24 hr TD SCH (12:45)
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
[2025-03-10 02:00] VITALS: BP 142/68; PULSE 76; RESP 16; TEMP 98.1; O2SAT 96
[2025-03-10 06:00] VITALS: BP 121/83; PULSE 61; RESP 18; TEMP 98.5; O2SAT 98
[2025-03-10 06:24] LABS: MEAN PLATELET VOLUME 9.6 FL (7.4-10.4); RED CELL DISTRIBUTION WIDTH 13.7 % (11.5-14.5)
[2025-03-10 06:43] LABS: CREATININE 0.79 MG/DL (0.60-1.10); TOTAL CARBON DIOXIDE 28.7 MMOL/L (24-32); eCRCL 139 ML/MIN; eGFR > 90 ML/MIN
[2025-03-10 08:00] VITALS: RESP 14; O2SAT 98
[2025-03-10] MEDS ORDERED: PANT40TA54 PO (10:57)
[2025-03-10] MEDS ORDERED: NALT50TA5 PO (10:58)
[2025-03-10] MEDS ORDERED: THIA50TA10 PO (10:59)
[2025-03-10] MEDS ORDERED: FOLI0.4T6 PO (10:59)
[2025-03-10] MEDS ORDERED: MULT-1074 PO (10:59)
[2025-03-10] MEDS ORDERED: NICO-731 TOP (10:59)
[2025-03-10 11:00] VITALS: BP 117/75; PULSE 68; RESP 16; TEMP 97.7; O2SAT 95
[2025-03-10 13:30] VITALS: RESP 16
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
== END 2025-03-10 14:19 | disposition home or self-care (01) | DRG 53 ==
LOC: ER 12:12 → ED HOLD 19:49 → EDBEDREQ 03-08 03:08 → PCU 3S 03-08 07:19
PROVIDERS: ADMIT Internal Medicine; ATTEND Internal Medicine
DX: G40.909 Epilepsy, unspecified, not intractable, without status epilepticus (principal); D69.59 Other secondary thrombocytopenia; F10.230 Alcohol dependence with withdrawal, uncomplicated; I10 Essential (primary) hypertension; F17.210 Nicotine dependence, cigarettes, uncomplicated; M25.512 Pain in left shoulder; F41.9 Anxiety disorder, unspecified; R74.01 Elevation of levels of liver transaminase levels; Z79.899 Other long term (current) drug therapy
CPT/HCPCS: 36415; 73030; 76700; 80053; 80305; 80320; 81003; 83605; 83690; 83735; 84100; 84443; 85025; 85610; 85730; 87081; 93005; 96365; 96375; 96376; 99285; G0378; J1644; J2060; J2270; J2405; J2560; J3360; J3411; J3490; J7030

== ENCOUNTER 2025-03-24 11:44 | Emergency (ER) | payer MEDICAID ==
[~2025-03-24] VITALS: Ht 175.3 cm; Wt 72.7 kg
[~2025-03-24 11:44] MED LIST changes: -CEPH-585 PO; -CHLO25CA10 PO; +FOLI0.4T6 PO; -IBUP600T52 PO; +MULT-1074 PO; +NALT50TA5 PO; -NICO-687 TD; +NICO-731 TOP; -OMEP20CA15 PO; -OXYC5CAP22 PO; -SUCR1TAB PO; +THIA50TA10 PO
[2025-03-24] MEDS ORDERED: NALT50TA5 PO (11:54)
--- NOTE | 2025-03-24 11:54 | Physician Documentation ---
HPI ~ General Chief Complaint: Medication Refill Stated Complaint: MED REQUEST Time Seen by MD: 11:49 Primary Medical Doctor: none History of Present Illness HPI Comments 40-year-old male presents to the ED stating he is out of naltrexone he has been clean for 10 days in his concerned he will not see his primary until late April. He says he has been very successful taking medication does not have any cravings and is requesting that the medication is sent to his pharmacy. denies any nausea or any other side effects Without Medications Since: Mar 24, 2025 Medication Reconciliation Allergies: Coded Allergies: No Known Allergies (Unverified , 03/07/25) Scheduled Folic Acid* (Folic Acid*), 1 TAB PO DAILY Multivitamin (Multi-Vitamin Daily), 1 TAB PO DAILY Naltrexone Hcl (Naltrexone Hcl), 1 TAB PO DAILY Naltrexone Hcl (Naltrexone Hcl), 1 TAB PO DAILY Nicotine (Nicotine Patch), 1 PATCH TOP DAILY Pantoprazole Sodium (Pantoprazole Sodium), 40 MG PO BID Sucralfate (Carafate), 1 TAB PO ACHS Thiamine HCl (Vitamin B-1), 2 TAB PO DAILY Scheduled PRN ONDANSETRON ODT 4mg tablet (Ondansetron Odt), 1 TAB PO Q6H PRN PRN for nausea/vomiting Past Medical History Past Medical History: No Pertinent History Past Surgical History: noncontributory Alcohol Use: Heavy Drug Use: none Lives In: Home Review of Systems All Other Systems at this time: Reviewed and Negative ROS As stated above in the HPI, otherwise all systems are reviewed and negative. Physical Exam Physical Exam Vital Signs: Weight: 72.730 Physical Exam General: Alert, no apparent distress. HEENT: PERRL, EOMI, no injection, moist mucous membranes. Neck: Full range of motion. Respiratory: Lungs clear, no respiratory distress. Chest: No accessory muscle use. Cardiovascular: Regular rate and rhythm, no murmurs. Gastrointestinal: Soft, nontender, nondistended. Bowels sounds present. Extremities: Normal range of motion, no deformity. Neurologic: Oriented x4. Psychiatric: Normal mood and affect. Skin: Normal color, warm and dry. No edema, no ecchymosis. Medical Decision Making Additional information obtaine: old records Findings Refilled sent to patient's pharmacy Differential Dx:Considerations: Include: Adverse circumstances, Economic, Psychosocial, Medical services unavail., Medication refill, Medication non- compliance, Other Departure Impression: Primary Impression: Alcohol abuse Condition: Stable Discharge Instructions: Medicine Refill at the Emergency Department Referrals: NO PRIMARY CARE PROVIDER (PCP) Prescriptions Naltrexone Hcl (Naltrexone Hcl) 50 Mg Tablet 1 TAB PO DAILY for 60 Days, #60 TAB 0 Refills Prov: ERIC HIDALGO NP 03/24/25 Signature Scribe Signature: r Attestation: Scribed for Eric Hidalgo [employer] by Eric Montaño NP . 03/24/25 18:02 ERIC HIDALGO NP Mar 24, 2025 11:54
== END 2025-03-24 12:00 | disposition home or self-care (01) ==
LOC: ER 11:44
DX: Z76.0 Encounter for issue of repeat prescription (principal); F10.10 Alcohol abuse, uncomplicated; Z79.899 Other long term (current) drug therapy; Y90.9 Presence of alcohol in blood, level not specified
CPT/HCPCS: 99282